=== PATIENT | female | born 1950 | race African-American/Black ===

== ENCOUNTER 2022-03-23 21:19 | Inpatient (IN) ==
[2022-03-24] MEDS ORDERED: LR 1,000 ML IV 1,000 ML IV SCH (01:00)
[2022-03-24] MEDS ORDERED: LR 1,000 ML IV 1,000 ML IV ONE (01:19)
[2022-03-24] MEDS ORDERED: NS 1,000 ML IV 1,000 ML ONE ×2 (01:55→13:41)
[2022-03-24] MEDS ORDERED: NovoLIN R (or HumuLIN R) SC PRN (02:14)
--- NOTE | 2022-03-24 02:47 | DR.H&P ---
H&P History & Physical for Day of: H&P Date: 03/24/22 Chief Complaint Chief Complaint: 72 yo female with history of diabetes and end stage renal failure undergoing dialysis 3x / week who was seen in my office 02/08/2022 for gangrenous changes of the right foot with severe contraction of the right leg. At that time I recommended right above knee amputation as she is not ambulatory and not a candidate for reconstruction of the arterial tree. Seen by her applications engineer manufacturing , Dr. Alba, earlier the day of admission, with complaints of severe right leg pain and gangrenous changes of the right foot. Also has skin changes of the left toes as well. History of CVA with right hemiparesis and the contraction of the right leg at the knee. Allergies Allergies Allergy/AdvReac Type Severity Reaction Status Date / Time lisinopril Allergy Unknown angioedema Verified 03/24/22 02:01 History of Present Illness History of Present Illness: See above . Past Medical History Past Medical History: Coronary Artery Disease, CVA, Diabetes, Dialysis, Hypertension and Renal Disease Social History Does patient currently use any type of tobacco product: No Have you used tobacco products in the last 12 months: No Medications Home Medications: lisinopril Allergy (Unknown, Verified 03/24/22 02:01) angioedema metoprolol ER 25 mg daily nifedipine ER 90 mg daily Miralax 17 grams daily levetiracetam 500 mg daily qhs Percocet 5mg hydralazine 25 mg TID folic acid 1 mg daily colace 100 mg daily plavix 75 mg daily atorvastatin 40 mg daily aspirin 81 mg daily Labs Labs: Hgb = 12, WBC =9 k, Na normal, K=3.1 Review of Systems Constitutional: See HPI Eyes: No Symptoms Reported ENT: No Symptoms Reported Respiratory: No Symptoms Reported Cardiovascular: No Symptoms Reported Gastrointestinal: No Symptoms Reported Genitourinary: No Symptoms Reported Musculoskeletal: See HPI Skin: See HPI Neurological: Other (Hx of CVA and right hemiparesis) Physical Exam Vital Signs: Temperature 98.7 F Pulse Rate [Left] 100 Respiratory Rate 18 Blood Pressure [Left Arm] 146/65 O2 Sat by Pulse Oximetry 99 Oriented: Person and Place Eyes: Normal Ear: Normal Nose: Normal Throat: Normal Respiratory: Clear Throughout Cardiovascular: Normal : Normal Auscultation: Bowel Sounds: Normal Palpation: Normal Skin: Other (gangrenous changes of right foot and severe cotraction around right knee) Affect: Depressed Assessment/Plan (1) Gangrene of right foot: Narrative Support Text: Will plan right above knee amputation. Status: Acute (2) Diabetes: Narrative Support Text: sliding scale insulin Status: Acute (3) Chronic kidney disease: Narrative Support Text: Will try to finish amputation and return to dialysis on MWF schedule. Status: Acute (4) Dependence on renal dialysis: Status: Acute (5) CVA, old, hemiparesis: Status: Acute (6) Essential (primary) hypertension: Status: Acute (7) Chronic ischemic heart disease, unspecified: Status: Acute (8) Spinal stenosis: Status: Acute
[2022-03-24] MEDS: NS 1,000 ML IV 1,000 ML IV SCH ×2 (02:52→15:54)
[2022-03-24] MEDS: DILAUDID INJ IVP PRN ×5 (03:23→21:03)
[2022-03-24 04:54] VITALS: BMI 17.9
[2022-03-24] MEDS: APRESOLINE TAB 25 MG PO SCH ×3 (05:10→21:06)
[2022-03-24] MEDS ORDERED: D50W ABBOJECT SYR IV ONE ×2 (05:30→10:40)
[2022-03-24] MEDS ORDERED: D50W ABBOJECT SYR ONE ×2 (05:32→10:39)
[2022-03-24] MEDS: PROCARDIA XL PO SCH ×2 (09:30→09:32)
[2022-03-24] MEDS: KEPPRA TAB 500 MG PO SCH (09:32)
[2022-03-24] MEDS: PROCARDIA XL 24-hr PO SCH (09:32)
[2022-03-24] MEDS: FOLIC ACID TAB 1 MG PO SCH ×2 (09:32→09:46)
[2022-03-24] MEDS: ASPIRIN EC 81 MG PO SCH (09:32)
[2022-03-24] MEDS: PLAVIX PO SCH (09:32)
[2022-03-24] MEDS: LIPITOR TAB 40 MG PO SCH ×3 (09:32→21:03)
[2022-03-24] MEDS: TOPROL XL PO SCH (09:32)
[2022-03-24] MEDS ORDERED: ANCEF VIAL 1 GRAM ONE (13:41)
[2022-03-24] MEDS ORDERED: NS 100 ML IV 100 ML ONE (13:41)
[2022-03-24] MEDS ORDERED: ZEMURON 100 MG VIAL ONE (13:46)
[2022-03-24] MEDS ORDERED: PEPCID 20 MG VIAL ONE (13:46)
[2022-03-24] MEDS ORDERED: FENTANYL VIAL INJ 100 mcg ONE (13:46)
[2022-03-24] MEDS ORDERED: NEO-SYNEPHRINE INJ ONE (13:46)
[2022-03-24] MEDS ORDERED: AMIDATE INJ 40 MG VIAL ONE (13:46)
[2022-03-24] MEDS ORDERED: BRIDION ONE ×2 (14:25→14:43)
[2022-03-24] MEDS ORDERED: BARHEMSYS INJ IVP PRN (14:58)
[2022-03-24] MEDS ORDERED: ZOFRAN INJ 4 MG VIAL IVP PRN (14:58)
--- NOTE | 2022-03-24 15:01 | OR.IMMED ---
IMMEDIATE POST-OP NOTE Immediate Post-Op Note Pre-Op Diagnosis: gangrenous right foot Post-Op Diagnosis: same Procedure: right above knee amputation Description of Procedure: see operative summary Surgeon/Technical Service Rep: Madeline Findings: as above Estimated Blood Loss: < 50 cc Complications: none Progress Notes: return to floor, begin diet , follow BMP and hope to get her to dialysis next Final Diagnosis: gangrenous right foot.
[2022-03-24] MEDS ORDERED: DILAUDID INJ ONE (15:08)
--- NOTE | 2022-03-24 15:36 | DR.OPNOTE ---
OP NOTE Pre-Op Diagnosis: gangrenous right foot Post-Op Diagnosis: same Procedure Date Date Of Procedure: 03/24/22 Procedure: PROCEDURE : RIGHT ABOVE KNEE AMPUTATION NARRATIVE : The patient was taken to the operative suite and placed in the Supine position. General endotracheal anesthesia induced. The entire right leg prepped and draped in sterile fashion with a impervious stockinet over the right foot. Time out for the procedure obtained . Fish mouth incision made one hands breath above the patella of the right leg with the number 10 knife blade extending through the muscles of the anterior medial and lateral thigh with electrocautery. Dissection carried down in the medial compartment and the femoral artery and femoral vein clamped ,divided and tied with 0 Vicryl suture ligatures. The periosteum of the femur elevated with a periosteal elevator. Femur divided with a Gigli saw and amputation knife used to complete the posterior flap of the amputation. The muscle was pink but there was very little bleeding. The bleeding vessels were clamped and tied with 2-0 silk suture ligatures . The sciatic nerve divided high in the thigh and tied with a 2-0 silk suture ligature . The wound irrigated. The two flaps had the fascia approximated with interrupted 3-0 Vicryl sutures and the skin closed with skin edwin. Dressing applied Patient tolerated this well and was extubated and taken to PACU in stable condition. Type of Anesthesia: General Anesthetic w/ETT Findings: as above EBL: < 50 cc Complications:: none Needle/Sponge Count:: correct Disposition/Condition: Pt. tolerated procedure without difficulty. Extubated in the OR and taken to PACU in stable condition.
[2022-03-24] MEDS ORDERED: COLACE CAP 100 MG PO ONE (19:33)
[2022-03-24] MEDS ORDERED: LIPITOR TAB 40 MG ONE (19:34)
[2022-03-24] MEDS: COLACE CAP 100 MG PO SCH (21:02)
[2022-03-25] MEDS: DILAUDID INJ IVP PRN (04:21)
[2022-03-25] MEDS: APRESOLINE TAB 25 MG PO SCH ×3 (05:02→21:00)
[2022-03-25] MEDS: NS 1,000 ML IV 1,000 ML IV SCH ×3 (05:03→23:28)
[2022-03-25 05:29] LABS: BLOOD UREA NITROGEN 11 mg/dL (7-18); CALCIUM 7.6 mg/dL (8.5-10.1); CARBON DIOXIDE 29.3 mmol/L (21-32); CHLORIDE 106 mmol/L (98-107); CREATININE 3.08 mg/dL (0.55-1.02); SODIUM 140 mmol/L (136-145); eGFR NON BLACK RACES 16 (>60)
[2022-03-25 05:30] LABS: BASOPHILS % (AUTO) 0.5 % (0.2-1.0); EOSINOPHILS % (AUTO) 0.1 % (0.9-2.9); HEMATOCRIT 31.6 % (36.0-47.0); HEMOGLOBIN 10.1 g/dL (12.0-16.0); LYMPHOCYTES # (AUTO) 0.5 X10^3/uL (1.3-2.9); LYMPHOCYTES % (AUTO) 5.2 % (21.0-51.0); MEAN CORPUSCULAR HEMOGLOBIN 28.9 pg (27.0-34.0); MEAN CORPUSCULAR VOLUME 90.5 fL (80.0-100.0); MEAN PLATELET VOLUME 7.5 fL (7.4-11.0); MONOCYTES # (AUTO) 0.7 x10^3/uL (0.3-0.8); MONOCYTES % (AUTO) 6.5 % (0.0-13.0); NEUTROPHILS # (AUTO) 8.9 x10^3/uL (2.2-4.8); NEUTROPHILS % (AUTO) 87.7 % (42.0-75.0); RED BLOOD COUNT 3.49 X10^6/uL (3.5-5.4); RED CELL DISTRIBUTION WIDTH 19.5 % (11.6-16.5); WHITE BLOOD COUNT 10.1 X10^3/uL (3.6-10.0)
[2022-03-25] MEDS: ASPIRIN EC 81 MG PO SCH (09:28)
[2022-03-25] MEDS: KEPPRA TAB 500 MG PO SCH (09:28)
[2022-03-25] MEDS: FOLIC ACID TAB 1 MG PO SCH (09:28)
[2022-03-25] MEDS: TOPROL XL PO SCH (09:28)
[2022-03-25] MEDS: PROCARDIA XL 24-hr PO SCH (09:28)
[2022-03-25] MEDS: PROCARDIA XL PO SCH (09:28)
[2022-03-25] MEDS: PLAVIX PO SCH (09:46)
--- NOTE | 2022-03-25 16:22 | NOTE.SOAP ---
Soap Note Note for Day of Date of Exam: 03/25/22 Subjective Data Subjective Data: POD 2 after right above knee amputation. Eating sparingly but otherwise stable Objective Data Temperature: 98.6 F Pulse Rate: 84 Respiratory Rate: 18 Blood Pressure: 119/58 Objective Data: Dressing intact right above knee stump. Hbg= 10.1, K=2.8, Cr=3.08 Patient with no sob or jugular venous distention. Patient is a dialysis patietn and gets dialysis on , and Sun. Assessment Assessment: S/p right AKA Plan Plan: Return to SNF Sunday and resume regular dialysis schedule on Sunday.
[2022-03-25] MEDS: COLACE CAP 100 MG PO SCH (21:00)
[2022-03-25] MEDS: LIPITOR TAB 40 MG PO SCH (21:00)
[2022-03-26] MEDS: APRESOLINE TAB 25 MG PO SCH ×3 (06:24→21:38)
[2022-03-26 07:01] LABS: BLOOD UREA NITROGEN 17 mg/dL (7-18); CALCIUM 7.4 mg/dL (8.5-10.1); CARBON DIOXIDE 26.3 mmol/L (21-32); CHLORIDE 107 mmol/L (98-107); CREATININE 3.71 mg/dL (0.55-1.02); SODIUM 141 mmol/L (136-145); eGFR NON BLACK RACES 13 (>60)
[2022-03-26] MEDS: TOPROL XL PO SCH (09:34)
[2022-03-26] MEDS: ASPIRIN EC 81 MG PO SCH (09:34)
[2022-03-26] MEDS: PLAVIX PO SCH (09:34)
[2022-03-26] MEDS: PROCARDIA XL PO SCH (09:35)
[2022-03-26] MEDS: PROCARDIA XL 24-hr PO SCH (09:36)
[2022-03-26] MEDS: FOLIC ACID TAB 1 MG PO SCH (09:36)
[2022-03-26] MEDS: KEPPRA TAB 500 MG PO SCH (09:36)
[2022-03-26] MEDS: NS 1,000 ML IV 1,000 ML IV SCH (16:15)
[2022-03-26] MEDS: D50W ABBOJECT SYR IV PRN ×2 (17:30→22:30)
[2022-03-26] MEDS: COLACE CAP 100 MG PO SCH (21:36)
[2022-03-26] MEDS: LIPITOR TAB 40 MG PO SCH (21:36)
--- NOTE | 2022-03-26 23:50 | NOTE.SOAP ---
Soap Note Note for Day of Date of Exam: 03/26/22 Subjective Data Subjective Data: Patient has been stable. POD # 2 after right above knee amputation. Has required d50 due to poor appetite. NO SOB. Due to resume dialysis schedule on Sunday03/28/2022. Objective Data Temperature: 98.4 F Pulse Rate: 77 Respiratory Rate: 18 Blood Pressure: 113/55 O2 Sat by Pulse Oximetry: 100 Objective Data: LEFT AK stump without significant drainage. NO JVD. Lungs clear , K=3.0, Cr =3.81 Assessment Assessment: s/p right above knee amputation. Plan Plan: Plan discharge tomorrow to SNF and resume dialysis 03/28/2022
[2022-03-27] MEDS: NS 1,000 ML IV 1,000 ML IV SCH ×2 (00:39)
[2022-03-27] MEDS: D50W ABBOJECT SYR IV PRN ×2 (00:40→04:00)
[2022-03-27] MEDS: APRESOLINE TAB 25 MG PO SCH (05:59)
[2022-03-27 08:52] VITALS: BP 117/56
[2022-03-27] MEDS: KEPPRA TAB 500 MG PO SCH (09:39)
[2022-03-27] MEDS: TOPROL XL PO SCH (09:39)
[2022-03-27] MEDS: PROCARDIA XL 24-hr PO SCH (09:39)
[2022-03-27] MEDS: ASPIRIN EC 81 MG PO SCH (09:39)
[2022-03-27] MEDS: PROCARDIA XL PO SCH (09:39)
[2022-03-27] MEDS: PLAVIX PO SCH (09:42)
[2022-03-27] MEDS: FOLIC ACID TAB 1 MG PO SCH (09:42)
--- NOTE | 2022-03-27 11:07 | W.DIS.FURT ---
Summary of Discharge Discharge Summary of Date Date of Exam: 03/27/22 Admission Date Date of Admission: 03/24/22 Admission Diagnosis Hospital Course: 72 year old female admitted on Sunday the 24 of March. Patient is a dialysis patient and is in a [facility] and had been seen in my office with gangrenous changes of the right foot with contraction around the right knee. At that time the patient and the family wanted to wait and see what happened. The right leg became worse and she was admitted on the 24 of March and later that day underwent a right above knee amputation. She had had dialysis the day before her presentation. She has done well. She has been eating sparingly and had some low blood sugar secondary to poor intake. She is diabetic. She has been without shortness of breath and her creatinine has risen to 3. 81 and her potassium is 3. 0. She roula be discharged today and she will return to her [facility]. She will begin her usual dialysis schedule , q ,Sun. to begin tommorrow 2021. She will see me in follow than one week on April 04. She will continue on her use of medications plus Percocet, 5 mg tablets, one every six hours. Pain Vital Signs: Vital Signs (72 hours) 03/26/22 23:50 03/25/22 16:21 03/24/22 12:00 Temperature 98.4 F 98.6 F 98.2 F Pulse Rate 77 84 Pulse Rate [Brachial] Pulse Rate [Left] 86 Respiratory Rate 18 18 12 Blood Pressure 113/55 119/58 Blood Pressure [Left Arm] 145/65 Blood Pressure [Right Arm] O2 Sat by Pulse Oximetry 100 98 Oxygen Delivery Method Room Air 03/24/22 15:11 03/24/22 14:56 03/24/22 15:01 Temperature 97.5 F L Pulse Rate 93 H 93 H Pulse Rate [Brachial] Pulse Rate [Left] Respiratory Rate 18 18 18 Blood Pressure 149/71 138/64 Blood Pressure [Left Arm] Blood Pressure [Right Arm] O2 Sat by Pulse Oximetry 96 96 Oxygen Delivery Method Nasal Cannula Nasal Cannula 03/24/22 15:06 03/24/22 15:11 03/24/22 15:16 Temperature Pulse Rate 93 H 93 H 95 H Pulse Rate [Brachial] Pulse Rate [Left] Respiratory Rate 18 18 18 Blood Pressure 145/66 137/63 110/65 Blood Pressure [Left Arm] Blood Pressure [Right Arm] O2 Sat by Pulse Oximetry 95 95 95 Oxygen Delivery Method Nasal Cannula Nasal Cannula Nasal Cannula 03/24/22 15:19 03/24/22 15:21 03/24/22 15:26 Temperature Pulse Rate 93 H 92 H Pulse Rate [Brachial] Pulse Rate [Left] Respiratory Rate 18 18 18 Blood Pressure 108/62 107/63 Blood Pressure [Left Arm] Blood Pressure [Right Arm] O2 Sat by Pulse Oximetry 95 95 Oxygen Delivery Method Nasal Cannula Nasal Cannula 03/24/22 15:31 03/24/22 15:45 03/24/22 16:00 Temperature 98.5 F Pulse Rate 90 Pulse Rate [Brachial] Pulse Rate [Left] 101 H 98 H Respiratory Rate 18 20 20 Blood Pressure 110/68 Blood Pressure [Left Arm] 118/57 119/62 Blood Pressure [Right Arm] O2 Sat by Pulse Oximetry 100 95 90 L Oxygen Delivery Method Nasal Cannula 03/24/22 16:15 03/24/22 16:30 03/24/22 16:45 Temperature 99.6 F Pulse Rate Pulse Rate [Brachial] Pulse Rate [Left] 98 H 99 H 106 H Respiratory Rate 18 18 18 Blood Pressure Blood Pressure [Left Arm] 105/58 113/55 124/70 Blood Pressure [Right Arm] O2 Sat by Pulse Oximetry 93 L 99 96 Oxygen Delivery Method 03/24/22 17:45 03/24/22 18:45 03/24/22 19:45 Temperature 98.9 F 98.9 F 97.5 F L Pulse Rate Pulse Rate [Brachial] Pulse Rate [Left] 96 H 97 H 95 H Respiratory Rate 18 18 18 Blood Pressure Blood Pressure [Left Arm] 120/65 102/59 120/57 Blood Pressure [Right Arm] O2 Sat by Pulse Oximetry 96 96 100 Oxygen Delivery Method Room Air 03/24/22 21:03 03/24/22 19:00 03/24/22 21:33 Temperature Pulse Rate Pulse Rate [Brachial] Pulse Rate [Left] Respiratory Rate 18 18 Blood Pressure Blood Pressure [Left Arm] Blood Pressure [Right Arm] O2 Sat by Pulse Oximetry Oxygen Delivery Method Room Air 03/25/22 00:00 03/25/22 04:00 03/25/22 04:21 Temperature 98.9 F 98.9 F Pulse Rate Pulse Rate [Brachial] Pulse Rate [Left] 95 H 94 H Respiratory Rate 18 18 18 Blood Pressure Blood Pressure [Left Arm] 125/58 123/58 Blood Pressure [Right Arm] O2 Sat by Pulse Oximetry 100 99 Oxygen Delivery Method Room Air Room Air 03/25/22 04:51 03/25/22 09:26 03/25/22 09:15 Temperature Pulse Rate Pulse Rate [Brachial] Pulse Rate [Left] Respiratory Rate 18 Blood Pressure Blood Pressure [Left Arm] Blood Pressure [Right Arm] O2 Sat by Pulse Oximetry Oxygen Delivery Method Room Air Room Air 03/25/22 08:00 03/25/22 12:00 03/25/22 16:00 Temperature 99.0 F 98.6 F 99.4 F Pulse Rate Pulse Rate [Brachial] Pulse Rate [Left] 99 H 84 94 H Respiratory Rate 18 18 18 Blood Pressure Blood Pressure [Left Arm] 128/60 119/58 98/53 Blood Pressure [Right Arm] O2 Sat by Pulse Oximetry 99 100 91 L Oxygen Delivery Method Room Air Room Air Room Air 03/25/22 20:00 03/25/22 19:00 03/26/22 00:00 Temperature 99.0 F 98.2 F Pulse Rate Pulse Rate [Brachial] 86 82 Pulse Rate [Left] Respiratory Rate 18 18 Blood Pressure Blood Pressure [Left Arm] Blood Pressure [Right Arm] 121/57 109/53 O2 Sat by Pulse Oximetry 98 99 Oxygen Delivery Method Room Air Room Air Room Air 03/26/22 04:00 03/26/22 08:00 03/26/22 07:00 Temperature 97.9 F 98.4 F Pulse Rate Pulse Rate [Brachial] 81 85 Pulse Rate [Left] Respiratory Rate 18 14 Blood Pressure Blood Pressure [Left Arm] 127/56 Blood Pressure [Right Arm] 101/57 127/56 O2 Sat by Pulse Oximetry 98 100 Oxygen Delivery Method Room Air Room Air Room Air 03/26/22 12:00 03/26/22 16:00 03/26/22 19:00 Temperature 98.2 F 98.3 F Pulse Rate Pulse Rate [Brachial] 81 81 Pulse Rate [Left] Respiratory Rate 11 L Blood Pressure Blood Pressure [Left Arm] Blood Pressure [Right Arm] 149/64 104/59 O2 Sat by Pulse Oximetry 100 97 Oxygen Delivery Method Room Air 03/26/22 20:00 03/27/22 00:00 03/27/22 04:00 Temperature 98.4 F 98.0 F 98.4 F Pulse Rate Pulse Rate [Brachial] 77 77 78 Pulse Rate [Left] Respiratory Rate 18 18 18 Blood Pressure Blood Pressure [Left Arm] Blood Pressure [Right Arm] 113/55 113/57 108/61 O2 Sat by Pulse Oximetry 100 99 99 Oxygen Delivery Method 03/27/22 08:00 03/27/22 07:00 Temperature 97.7 F Pulse Rate Pulse Rate [Brachial] 80 Pulse Rate [Left] Respiratory Rate 18 Blood Pressure Blood Pressure [Left Arm] Blood Pressure [Right Arm] 117/56 O2 Sat by Pulse Oximetry 100 Oxygen Delivery Method Room Air Labs: Laboratory Last Values WBC 10.1 X10^3/uL (3.6-10.0) H 03/25/22 04:48 RBC 3.49 X10^6/uL (3.5-5.4) L 03/25/22 04:48 Hgb 10.1 g/dL (12.0-16.0) L 03/25/22 04:48 Hct 31.6 % (36.0-47.0) L 03/25/22 04:48 MCV 90.5 fL (80.0-100.0) 03/25/22 04:48 MCH 28.9 pg (27.0-34.0) 03/25/22 04:48 MCHC 32.0 g/dL (33.0-35.0) L 03/25/22 04:48 RDW 19.5 % (11.6-16.5) H 03/25/22 04:48 Plt Count 288 X10^3/uL (150.0-450.0) 03/25/22 04:48 MPV 7.5 fL (7.4-11.0) 03/25/22 04:48 Neut % (Auto) 87.7 % (42.0-75.0) H 03/25/22 04:48 Lymph % (Auto) 5.2 % (21.0-51.0) L 03/25/22 04:48 [place] % (Auto) 6.5 % (0.0-13.0) 03/25/22 04:48 Eos % (Auto) 0.1 % (0.9-2.9) L 03/25/22 04:48 Baso % (Auto) 0.5 % (0.2-1.0) 03/25/22 04:48 Neut # (Auto) 8.9 x10^3/uL (2.2-4.8) H 03/25/22 04:48 Lymph # (Auto) 0.5 X10^3/uL (1.3-2.9) L 03/25/22 04:48 [place] # (Auto) 0.7 x10^3/uL (0.3-0.8) 03/25/22 04:48 Eos # (Auto) 0.0 x10^3/uL (0.0-0.2) 03/25/22 04:48 Baso # (Auto) 0.0 X10^3/uL (0.0-0.1) 03/25/22 04:48 Absolute Nucleated RBC 0.0 /100WBC 03/25/22 04:48 Sodium 141 mmol/L (136-145) 03/26/22 06:29 Corrected Sodium TNP 03/26/22 06:29 Potassium 3.0 mmol/L (3.5-5.1) L 03/26/22 06:29 Chloride 107 mmol/L (98-107) 03/26/22 06:29 Carbon Dioxide 26.3 mmol/L (21-32) 03/26/22 06:29 BUN 17 mg/dL (7-18) 03/26/22 06:29 Creatinine 3.71 mg/dL (0.55-1.02) H 03/26/22 06:29 Est GFR (MDRD) Af Amer 15 (>60) L 03/26/22 06:29 Est GFR (MDRD) Non-Af 13 (>60) L 03/26/22 06:29 Glucose 103 mg/dL (65-99) H 03/26/22 06:29 Calcium 7.4 mg/dL (8.5-10.1) L 03/26/22 06:29 Magnesium 1.8 mg/dL (1.7-2.9) 03/25/22 04:48 SARS-CoV-2 (PCR) Positive (NEGATIVE) A 03/24/22 10:10 Tissue Pathology To follow 03/24/22 14:27 Tissue Pathology To follow 03/24/22 14:27 Reason For Visit: GANGRENE, RIGHT LOWER EXTREMITY Discharge Date Discharge Date: 03/27/22 Discharge Diagnosis All Active Problems (Updated 03/24/22 @ 02:45 by Juan Correa) Spinal stenosis (Acute) Chronic ischemic heart disease, unspecified (Acute) Essential (primary) hypertension (Acute) CVA, old, hemiparesis (Acute) Dependence on renal dialysis (Acute) Chronic kidney disease (Acute) Diabetes (Acute) Gangrene of right foot (Acute) Plan of Treatment: Continue with present treatment and follow up plan. Pt is to keep follow up appointment as instructed and take medications as ordered. Discharge Medications Discharge Medications: lisinopril Allergy (Unknown, Verified 03/24/22 02:01) angioedema CONTINUE taking the following medications Home 1 applic EXT DAILY 03/24/22 [History] aspirin 81 mg tablet,delayed release 81 mg PO QDAY 03/24/22 [History] atorvastatin 40 mg tablet (Lipitor) 40 mg PO QHS 03/24/22 [History] clopidogrel 75 mg tablet (Plavix) 75 mg PO QDAY 03/24/22 [History] dextrose 40 % oral gel (Glucose Gel) 1 ea PO QAM 03/24/22 [History] docusate sodium 50 mg capsule 50 mg PO QDAY 03/24/22 [History] folic acid 1 mg tablet 1 mg PO QDAY 03/24/22 [History] glucagon 1 mg injection kit 1 mg IM Q24D 03/24/22 [History] hydralazine 10 mg tablet 20 mg PO TID 03/24/22 [History] levetiracetam 500 mg tablet 500 mg PO HS 03/24/22 [History] metoprolol succinate 25 mg tablet,extended release 24 hr 25 mg PO QDAY 03/24/22 [History] multivitamin with iron-mineral 1 tab PO BID 03/24/22 [History] nifedipine 90 mg tablet,extended release 90 mg PO QDAY 03/24/22 [History] oxycodone 10 mg tablet 10 mg PO DAILY PRN 03/24/22 [History] oxycodone 10 mg tablet 10 mg PO TID 03/24/22 [History] polyethylene glycol 3350 17 gram oral powder packet (Miralax) 17 g PO QDAY 03/24/22 [History] sodium hypochlorite 0.5 % solution (Dakin's Solution) 1 applic topical QDAY 03/24/22 [History] New Prescriptions oxycodone-acetaminophen 5 mg-325 mg tablet 1 tab PO Q6H PRN 10 days #30 tabs 03/27/22 [Rx] Discharge Disposition Assessment: See hospital course Discharge Plan Discharge Plan Hospital Course: 72 year old female admitted on Sunday the 24 of March. Patient is a dialysis patient and is in a [facility] and had been seen in my office with gangrenous changes of the right foot with contraction around the right knee. At that time the patient and the family wanted to wait and see what happened. The right leg became worse and she was admitted on the 24 of March and later that day underwent a right above knee amputation. She had had dialysis the day before her presentation. She has done well. She has been eating sparingly and had some low blood sugar secondary to poor intake. She is diabetic. She has been without shortness of breath and her creatinine has risen to 3. 81 and her potassium is 3. 0. She roula be discharged today and she will return to her [facility]. She will begin her usual dialysis schedule , q ,Sat. to begin tommorrow 2021. She will see me in follow than one week on April 04. She will continue on her use of medications plus Percocet, 5 mg tablets, one every six hours. Pain Patient Disposition: SNF Condition: Stable Health Concerns: Post Hospitalization: new medications and changes needed to prevent readmission or further decline. Pt educated and given instructions on all concerns. Care Plan Goals: Pain control Plan of Treatment: Continue with present treatment and follow up plan. Pt is to keep follow up appointment as instructed and take medications as ordered. Assessment: See hospital course Prescription drug monitoring program results: PDMP was not reviewed Prescriptions: New oxycodone-acetaminophen 5-325 mg Tablet 1 tab PO Q6H MDD 3 PRN10 Days Qty: 30 0RF No Action atorvastatin [Lipitor] 40 mg Tablet 40 mg PO QHS Colace 50 mg Capsule 50 mg PO QDAY clopidogrel [Plavix] 75 mg Tablet 75 mg PO QDAY aspirin [Aspir-81] 81 mg Tablet,Delayed Release (Dr/Ec) 81 mg PO QDAY Dakin's Solution 0.5 % Solution 1 applic TOPICAL QDAY Rx Instructions: APPLY TO LEFT OUTER ANKLE EVERY DAY,CLEAN LEFT OUTER ANKLE WOUND WITH DAKINS FS,PAT DRY APPLY MEDIHONEY COVER WITH ABD PAD SECURE WITH KERLIX. Glucagon Emergency Kit 1 mg Kit 1 mg IM Q24D Rx Instructions: GIVE FOR BLOOD SUGAR<50 AND UNRESPONSIVE. hydralazine 10 mg Tablet 20 mg PO TID polyethylene glycol 3350 [Miralax] 17 gram Powder In Packet 17 g PO QDAY nifedipine 90 mg Tablet Extended Release 90 mg PO QDAY levetiracetam 500 mg Tablet 500 mg PO HS dextrose [Glucose Gel] 40 % Gel 1 ea PO QAM folic acid 1 mg Tablet 1 mg PO QDAY metoprolol succinate 25 mg Tablet Extended Release 24 Hr 25 mg PO QDAY Multi M Vitamin Tablet 1 tab PO BID oxycodone 10 mg Tablet 10 mg PO TID Rx Instructions: GIVE THREE TIMES A DAY. oxycodone 10 mg Tablet 10 mg PO DAILY PRN Rx Instructions: GIVW 30 MINUTES PRIOR TO DRESSING CHANGE. Home gel 1 applic EXT DAILY Rx Instructions: apply to left heel after cleaning with dakins solution cover with abd pad secure with cristina. Orders to Discharge Patient Discharge Orders: Discharge (Routine); Ordered 03/27/22 Ordered By: Juan Correa Follow ups/Referrals Follow ups/Referrals: Juan Correa [Primary Care Provider] - 04/04/22 10:30 am Instructions Instructions: Stump and Prosthesis Care, Living With an Amputation, Phantom Limb Pain, Diabetes Basics, Chronic Kidney Disease, Adult, Zipe-nt-Wzwt Activity Restrictions/Additional Instructions: Leave dressing intact until follow up appointment with Dr. Correa on 04/04@10:30. Stand Alone Forms: Precautions for COVID19, Patient Portal, Social Distancing Patient Education Addl Reference Links: Essential (primary) hypertension [email or web address] [email or web address] &[email or web address]&patientPerson.administrativeGenderCode.c=F&patientPer son.administrativeGenderCode.dn=Female&age.v.v=72&age.v.u=a&performer=PROV&infor mationRecipient=PAT&performer.languageCo de.c=en&mainSearchCriteria.v.q=[id number]&mainSearchCriteria.v.cs=[id number] 3.6.96&mainSearchCriteria.v.dn=Essential%2B%2528primary%2529%2Bhypertension&main SearchCriteria.v.n3=605&mainSearchCriter ia.v.dn1=Essential%2B%2528primary%2529%2Bhypertension&mainSearchCriteria.v.c2=40 1.9&mainSearchCriteria.v.cs2=[id number]&mainSearchCriteria.v.dn2=Es sential%2B%2528primary%2529%2Bhypertensi on&mainSearchCriteria.v.c3=I10&mainSearchCriteria.v.cs3=[id number]&m ainSearchCriteria.v.dn3=Essential%2B%2528primary%2529%2Bhypertension&z=[id number]- [id number]
== END 2022-03-27 12:40 | DRG 239 ==
LOC: MED/SURG 03-24 00:38
PROVIDERS: ADMIT Surgery; ATTEND Surgery
DX: U07.1 COVID-19; I13.11 Hypertensive heart and chronic kidney disease without heart failure, with stage 5 chronic kidney disease, or end stage renal disease; N18.6 End stage renal disease; I70.201 Unspecified atherosclerosis of native arteries of extremities, right leg; E11.65 Type 2 diabetes mellitus with hyperglycemia; E11.52 Type 2 diabetes mellitus with diabetic peripheral angiopathy with gangrene; I69.351 Hemiplegia and hemiparesis following cerebral infarction affecting right dominant side; E11.621 Type 2 diabetes mellitus with foot ulcer; I25.10 Atherosclerotic heart disease of native coronary artery without angina pectoris; Z99.2 Dependence on renal dialysis; I96 Gangrene, not elsewhere classified; M48.00 Spinal stenosis, site unspecified